=== PATIENT | female | born 1985 | race Caucasian/White ===

== ENCOUNTER 2019-06-24 21:07 | Emergency (ER) | payer OTHER ==
[~2019-06-24] VITALS: Ht 157.5 cm; Wt 81.6 kg
[2019-06-24] MEDS ORDERED: SYNTHROID88 MCG PO (21:22)
[2019-06-24] MEDS ORDERED: CONCEPT OB CAP1 EACH PO (21:23)
== END 2019-06-24 22:26 | disposition home or self-care (01) ==
LOC: ER 21:07
DX: O26.892 Other specified pregnancy related conditions, second trimester (principal); M79.18 Myalgia, other site; T88.1XXA Other complications following immunization, not elsewhere classified, initial encounter; Z34.02 Encounter for supervision of normal first pregnancy, second trimester

== ENCOUNTER 2019-06-27 12:11 | Emergency (ER) | payer OTHER ==
[~2019-06-27] VITALS: Ht 157.5 cm; Wt 81.6 kg
[~2019-06-27 12:11] MED LIST: CONCEPT OB CAP1 EACH PO; SYNTHROID88 MCG PO
== END 2019-06-27 14:56 | disposition home or self-care (01) ==
LOC: ER 12:11
DX: J03.80 Acute tonsillitis due to other specified organisms (principal)

== ENCOUNTER 2019-06-30 17:08 | Emergency (ER) | payer OTHER ==
[~2019-06-30] VITALS: Ht 157.5 cm; Wt 78.9 kg
[2019-06-30] MEDS ORDERED: VALTREX1000 MG (17:26)
[2019-06-30] MEDS ORDERED: CLEOCIN HCL300 MG (17:27)
== END 2019-07-01 14:02 | disposition home or self-care (01) ==
LOC: ER 17:08
DX: B00.9 Herpesviral infection, unspecified (principal); E86.0 Dehydration

== ENCOUNTER 2019-10-12 09:49 | Inpatient (IN) | payer OTHER ==
[~2019-10-12] VITALS: Ht 157.5 cm; Wt 3.2 kg
[~2019-10-12 09:49] MED LIST changes: +CLEOCIN HCL300 MG; +VALTREX1000 MG
== END 2019-10-31 13:34 | disposition home or self-care (01) | DRG 788 ==
LOC: OB/GYN 10-28 12:04 → LDR 10-28 12:04 → OB/GYN 10-28 22:24
PROVIDERS: ADMIT Obstetrics & Gynecology Maternal & Fetal Medicine
PROC: 3E033VJ Introduction of Other Hormone into Peripheral Vein, Percutaneous Approach (ICD-10-PCS; 2019-10-28)
PROC: 4A1HXCZ Monitoring of Products of Conception, Cardiac Rate, External Approach (ICD-10-PCS; 2019-10-28)
PROC: 10D00Z1 Extraction of Products of Conception, Low, Open Approach (ICD-10-PCS; principal; 2019-10-28 20:00)
DX: O82 Encounter for cesarean delivery without indication (principal); O32.4XX0 Maternal care for high head at term, not applicable or unspecified; Z3A.38 38 weeks gestation of pregnancy; Z37.0 Single live birth

== ENCOUNTER 2025-04-07 07:03 | Outpatient (CLI) | payer OTHER ==
[2025-04-07 08:15] LABS: BASO % 0.5 % (0.1-1.2); EOS # 0.20 (0.04-0.54); EOS % 3.4 % (0.7-7.0); LYMPH # 1.70 (1.18-3.74); LYMPH % 28.8 % (19.3-53.1); MEAN PLATELET VOLUME 9.50 fl (9.4-12.4); MONO # 0.30 (0.24-0.82); MONO % 5.1 % (4.7-12.5); NEUT # 3.67 (1.56-6.13); NEUT % 62.0 % (34.0-71.1); RED CELL DISTRIBUTION WIDTH 12.4 % (11.6-14.4)
[2025-04-07 09:18] LABS: % SATURACION 20.7 % (15-50); ALT/SGPT 38.0 U/L (12-78); AST/SGOT 18.0 U/L (15-37); BILIRUBIN TOTAL 0.54 mg/dL (0.3-1.2); BUN CREA RATIO 18.0 (7.0-25.0); CHOL HDL RATIO 2.2 (0-5.0); CREATININE SERUM 0.78 mg/dL (0.55-1.02); FE 59.0 ug/dl (50-170); GFR 81.8; GLOBULINA 3.5 G/DL (2.4-3.5); GLUCOSE FASTING 75.0 mg/dL (65-100); HDL 42.0 mg/dl (40-60); LDH 142.0 U/L (84-246); LDL 39.0 mg/dl (0-130); OSMOLALITY SERUM 284.0 MOSM/KG (275-295); T4 FREE 1.47 NG/ML (0.76-1.46); TSH 0.53 uIU/mL (0.358-3.74); VLDL 12.0 (0-39)
[2025-04-07 09:50] LABS: FOLIC ACID 10.87 ng/ml (4.78-20)
[2025-04-07 12:46] LABS: MANUAL PLATELET COUNT 250
[2025-04-07 13:51] LABS: RF NEGATIVE (NEGATIVE)
[2025-04-08 09:11] LABS: COMPLEMENT C3 149 mg/dL (82-167); COMPLEMENT C4 36 mg/dL (12-38); HSV I IGG TYPE SPECIFIC Reactive (Non Reactive); hav igm Negative (Negative); hep b c Negative (Negative); hep b s ag Negative (Negative)
[2025-04-08 13:12] LABS: DNA AB DOUBLE STRABDED < 1 IU/mL (0-9)
[2025-04-10 19:11] LABS: PARIETAL CELL ANTIBODIES 0.6 Units (0.0-20.0)
== END 2025-04-07 07:21 | disposition home or self-care (01) ==
LOC: LAB 07:03
PROVIDERS: ATTEND Internal Medicine Hematology & Oncology
DX: R59.1 Generalized enlarged lymph nodes (principal); E06.3 Autoimmune thyroiditis; E03.8 Other specified hypothyroidism; B00.2 Herpesviral gingivostomatitis and pharyngotonsillitis; D50.8 Other iron deficiency anemias; R79.9 Abnormal finding of blood chemistry, unspecified; I10 Essential (primary) hypertension; R74.02 Elevation of levels of lactic acid dehydrogenase [LDH]; K76.89 Other specified diseases of liver; D51.1 Vitamin B12 deficiency anemia due to selective vitamin B12 malabsorption with proteinuria; B20 Human immunodeficiency virus [HIV] disease; A53.9 Syphilis, unspecified; M32.9 Systemic lupus erythematosus, unspecified; M06.9 Rheumatoid arthritis, unspecified; E11.65 Type 2 diabetes mellitus with hyperglycemia; E78.5 Hyperlipidemia, unspecified

== ENCOUNTER 2025-07-18 07:46 | Outpatient (CLI) | payer OTHER ==
[2025-07-18 09:07] LABS: BASO % 0.5 % (0.1-1.2); EOS # 0.20 (0.04-0.54); EOS % 3.1 % (0.7-7.0); LYMPH # 1.73 (1.18-3.74); LYMPH % 27.2 % (19.3-53.1); MEAN PLATELET VOLUME 9.10 fl (9.4-12.4); MONO # 0.31 (0.24-0.82); MONO % 4.9 % (4.7-12.5); NEUT # 4.09 (1.56-6.13); NEUT % 64.1 % (34.0-71.1); RED CELL DISTRIBUTION WIDTH 11.7 % (11.6-14.4)
[2025-07-18 10:44] LABS: ALT/SGPT 26.0 U/L (12-78); AST/SGOT 15.0 U/L (15-37); BILIRUBIN TOTAL 0.62 mg/dL (0.3-1.2); BUN CREA RATIO 17.0 (7.0-25.0); CREATININE SERUM 0.78 mg/dL (0.55-1.02); GFR 81.39; GLOBULINA 2.8 G/DL (2.4-3.5); GLUCOSE FASTING 93.0 mg/dL (65-100); LDH 130.0 U/L (84-246); OSMOLALITY SERUM 281.0 MOSM/KG (275-295)
== END 2025-07-18 07:52 | disposition home or self-care (01) ==
LOC: LAB 07:46
PROVIDERS: ATTEND Internal Medicine Hematology & Oncology
DX: D50.8 Other iron deficiency anemias (principal); I10 Essential (primary) hypertension; R74.02 Elevation of levels of lactic acid dehydrogenase [LDH]; K76.89 Other specified diseases of liver; B27.90 Infectious mononucleosis, unspecified without complication; R59.1 Generalized enlarged lymph nodes; E06.3 Autoimmune thyroiditis; E03.8 Other specified hypothyroidism; B00.2 Herpesviral gingivostomatitis and pharyngotonsillitis